=== PATIENT | female | born 1980 | race Caucasian/White ===

== ENCOUNTER 2022-12-23 15:40 | Outpatient (CLI) | payer OTHER | END 2022-12-23 15:41 | disposition home or self-care (01) | LOC: DTY/OP 15:40 | PROVIDERS: ATTEND Surgery | DX: E66.01 Morbid (severe) obesity due to excess calories (principal) | CPT/HCPCS: 97802 ==

== ENCOUNTER 2023-02-11 12:15 | Inpatient (IN) | payer OTHER ==
[2023-02-15 14:24] VITALS: BMI 41.5
[2023-02-17] MEDS ORDERED: Lidocaine 1% MPF 2 ML VIAL ONE (07:44)
[2023-02-17] MEDS ORDERED: Heparin 5,000 UNITS/ML VIAL ONE (07:44)
[2023-02-17] MEDS ORDERED: CEFAZOLIN 2 GM VIAL ONE (07:45)
[2023-02-17] MEDS ORDERED: Sodium Chloride 0.9% 100 ML ONE (07:46)
[2023-02-17] MEDS ORDERED: Bupivacaine/Epinephrine 0.25% 30 ML VIAL ONE (08:58)
[2023-02-17] MEDS ORDERED: Bupivacaine PF 0.5% 30 ML VIAL ONE (09:00)
[2023-02-17] MEDS ORDERED: SUGAMMADEX SODIUM 200 MG/2 ML VIAL ONE (09:02)
[2023-02-17] MEDS ORDERED: Fentanyl 250 MCG/5 ML VIAL ONE (09:02)
[2023-02-17] MEDS ORDERED: Ketamine 50 MG/ML (10ML VIAL) ONE (09:02)
[2023-02-17] MEDS ORDERED: Midazolam HCl 2 mg/2 ml Vial ONE (09:08)
[2023-02-17] MEDS ORDERED: fentaNYL PF 100 MCG/2 ML SYRINGE ONE ×2 (09:21→11:57)
[2023-02-17] MEDS ORDERED: HYDROmorphone 0.5 MG/0.5 ML SYRINGE ONE (09:21)
[2023-02-17] MEDS ORDERED: Ondansetron PF 4 MG/2 ML Vial ONE (09:22)
[2023-02-17] MEDS ORDERED: Dexamethasone 20 MG/5 ML VIAL ONE (09:22)
[2023-02-17] MEDS ORDERED: Lidocaine 1% PF 5 ML VIAL ONE (09:22)
[2023-02-17] MEDS ORDERED: Phenylephrine 10 MG/ML VIAL ONE (09:22)
[2023-02-17] MEDS ORDERED: PROPOFOL 200 MG/20 ML VIAL ONE (09:22)
[2023-02-17] MEDS ORDERED: Rocuronium Bromide 10 MG/ML (10ML VIAL) ONE (09:22)
[2023-02-17] MEDS ORDERED: Lidocaine 2% PF 5 ML VIAL ONE (09:48)
[2023-02-17] MEDS ORDERED: Ondansetron HCl/PF 4 MG/2 ML Vial IVP PRN (11:07)
[2023-02-17] MEDS ORDERED: Promethazine HCl 25 MG/ML VIAL IM PRN ×3 (11:07→12:00)
[2023-02-17] MEDS ORDERED: HYDROmorphone 2 MG/ML VIAL SLOW IVP PRN (11:07)
[2023-02-17] MEDS ORDERED: Hydrocodone-Acetamin 15 ML UDCUP PO PRN (11:26)
[2023-02-17] MEDS ORDERED: Ipratropium/Albuterol 3 ML NEB NEB PRN (11:26)
[2023-02-17] MEDS ORDERED: hydrALAZINE 20 MG/ML VIAL SLOW IVP PRN (11:26)
[2023-02-17] MEDS ORDERED: Ondansetron PF 4 MG/2 ML Vial IVP PRN (11:26)
[2023-02-17] MEDS ORDERED: Dextrose 5% in Water 1,000 ML IV PRN (11:26)
[2023-02-17] MEDS ORDERED: Dextrose 50% Abboject 50 ML SYRINGE SLOW IVP PRN (11:26)
[2023-02-17] MEDS ORDERED: diphenhydrAMINE 50 MG/ML VIAL IVP PRN (11:26)
[2023-02-17] MEDS ORDERED: Fentanyl CADD 100 ML IVPB SCH (12:00)
[2023-02-17] MEDS ORDERED: diphenhydrAMINE 25 MG CAP PO PRN (12:00)
[2023-02-17] MEDS ORDERED: Zolpidem Tartrate 5 MG TAB PO PRN (12:00)
[2023-02-17] MEDS ORDERED: diphenhydrAMINE 50 MG/ML VIAL IM/IV PRN (12:00)
[2023-02-17] MEDS ORDERED: diphenhydrAMINE 50 MG/ML VIAL ONE (12:04)
[2023-02-17] MEDS: Ondansetron PF 4 MG/2 ML Vial IVP PRN ×2 (12:39→18:31)
[2023-02-17] MEDS: D5 1/2 NS w/20 mEq KCL 1,000 ML IV SCH ×2 (12:40→22:38)
[2023-02-17] MEDS: Ketorolac Tromethamine 30 MG/ML VIAL IVP PRN (22:35)
[2023-02-17] MEDS: Promethazine HCl 25 MG/ML VIAL IM PRN (23:00)
[2023-02-18] MEDS: Ketorolac Tromethamine 30 MG/ML VIAL IVP PRN (04:15)
[2023-02-18] MEDS: D5 1/2 NS w/20 mEq KCL 1,000 ML IV SCH ×2 (04:15→11:22)
[2023-02-18] MEDS: Promethazine HCl 25 MG/ML VIAL IM PRN (05:46)
[2023-02-18 06:06] LABS: #Monocytes 1.3 thou/uL (0.11-0.59); #Neutrophils 8.2 thou/uL (1.40-6.50); %Basophils 0.1 % (0.0-1.0); %Eosinophils 0.1 % (0.0-10.0); %Lymphocytes 17.5 % (21.0-51.0); %Monocytes 10.9 % (0.0-10.0); %Neutrophils 71.4 % (42.0-75.0); Hemoglobin 12.3 g/dL (12.0-16.0); Mean Corpuscular HGB CONC 33.3 g/dL (32.0-36.0); Mean Corpuscular Hemoglobin 27.3 pg (27.0-31.0); Platelet Count 293 10x3/uL (130-400); RBC Distribution Width 12.6 % (11.5-14.5); Red Blood Cell (RBC) Count 4.53 mill/uL (4.20-5.40); White Blood Cell (WBC) Count 11.5 10x3/uL (4.8-10.8)
[2023-02-18 06:30] LABS: Anion Gap 9 mmol/L (10-20); BUN (Urea Nitrogen) 6 mg/dL (7.0-18.7); Calc. Creatinine Clearance 190 mL/min (70-130); Calcium 8.6 mg/dL (7.8-10.44); Carbon Dioxide 25 mmol/L (22-29); Chloride 108 mmol/L (98-107); Estimated GFR 111; Glucose 132 mg/dL (70-105); Potassium 3.8 mmol/L (3.5-5.1); Sodium 138 mmol/L (136-145)
[2023-02-18] MEDS ORDERED: Pantoprazole 40 MG VIAL IVP SCH (09:00)
[2023-02-18] MEDS ORDERED: traMADol HCl 50 MG TAB PO PRN (11:11)
[2023-02-18] MEDS ORDERED: Acetaminophen 325 MG/10.15 ML UDCUP PO PRN (11:12)
[2023-02-18 15:44] VITALS: BP 122/77; TEMP 98.4
== END 2023-02-18 16:40 | disposition home or self-care (01) | DRG 621 ==
LOC: SURG A 02-17 06:51
PROVIDERS: ADMIT Surgery; ATTEND Surgery
PROC: 0DB64Z3 Excision of Stomach, Percutaneous Endoscopic Approach, Vertical (ICD-10-PCS; principal; 2023-02-17)
PROC: 8E0W4CZ Robotic Assisted Procedure of Trunk Region, Percutaneous Endoscopic Approach (ICD-10-PCS; 2023-02-17)
DX: E66.01 Morbid (severe) obesity due to excess calories (principal); G47.33 Obstructive sleep apnea (adult) (pediatric); Z68.41 Body mass index [BMI] 40.0-44.9, adult; Z79.890 Hormone replacement therapy; Z79.899 Other long term (current) drug therapy; Z88.0 Allergy status to penicillin; Z88.5 Allergy status to narcotic agent; Z90.710 Acquired absence of both cervix and uterus
CPT/HCPCS: 36415; 80048; 85025; 88307; C9113; J1100; J1170; J1200; J1644; J1650; J1885; J2001; J2250; J2370; J2405; J2550; J2704; J3010; J3480; J3490; S0020

== ENCOUNTER 2023-02-11 12:26 | Outpatient (CLI) | payer OTHER ==
[2023-02-11 13:17] LABS: #Basophils 0.1 10x3/uL (0.0-0.2); #Eosinphils 0.4 10x3/uL (0.0-0.5); #Monocytes 0.9 10x3/uL (0.0-1.1); #Neutrophils 4.5 10x3/uL (1.5-8.4); %Eosinophils 3.8 % (0.0-6.0); %Monocytes 9.7 % (0.0-10.0); %Neutrophils 47.2 % (40.0-75.0); Hemoglobin 13.4 g/dL (12.0-15.5); Mean Corpuscular HGB CONC 31.7 g/dL (32.0-36.0); Mean Corpuscular Hemoglobin 25.5 pg (27.0-33.0); Mean Corpuscular Volume 80.6 fl (81.6-98.3); Mean Platelet Volume 9.3 fl (7.4-10.4); Platelet Count 336 10x3/uL (150-450); RBC Distribution Width 13.5 % (11.5-14.5); Red Blood Cell (RBC) Count 5.25 10x6/uL (3.90-5.03); White Blood Cell (WBC) Count 9.5 10x3/uL (3.5-10.5)
[2023-02-11 13:42] LABS: Anion Gap 14 mmol/L (10-20); BUN (Urea Nitrogen) 9 mg/dL (7.0-18.7); Calc. Creatinine Clearance 0 mL/min (70-130); Calcium 9.6 mg/dL (7.8-10.44); Carbon Dioxide 25 mmol/L (22-29); Chloride 103 mmol/L (98-107); Estimated GFR 111; Glucose 70 mg/dL (70-105); Potassium 4.3 mmol/L (3.5-5.1); Sodium 138 mmol/L (136-145)
== END 2023-02-11 12:27 | disposition home or self-care (01) ==
LOC: LABBT 12:26
PROVIDERS: ATTEND Surgery
DX: Z01.818 Encounter for other preprocedural examination (principal); G47.33 Obstructive sleep apnea (adult) (pediatric); E66.01 Morbid (severe) obesity due to excess calories
CPT/HCPCS: 71046; 80048; 85025; 93005; 93010